=== PATIENT | male | born 1960 | race Caucasian/White ===

== ENCOUNTER → 2023-12-26 08:28 | Outpatient (REF) | payer MEDICARE, SELFPAY | LOC: MRI 3T 08:28 | PROVIDERS: ATTENDING PHYSICIAN Specialist; FAMILY PHYSICIAN Family Medicine | DX: N41.1 Chronic prostatitis (principal) | CPT/HCPCS: 72197; A9575 ==

== ENCOUNTER 2024-01-17 06:05 | Day surgery (SDC) | payer MEDICARE, SELFPAY ==
[2024-01-17] VITALS (9 sets, daily range): BP systolic 114–130; BP diastolic 79–94; BMI 31.7
[2024-01-17 06:36] LABS: Urine Albumin Negative (Neg - Trace); Urine Bilirubin Negative (Negative); Urine Character Clear (Clear); Urine Color Yellow; Urine Glucose Negative (Negative); Urine Ketone Negative (Negative); Urine Leukocyte Negative (Negative); Urine Nitrite Negative (Negative); Urine Occult Blood 3+ (Negative); Urine Urobilinogen Negative (Neg - 1+)
[2024-01-17] MEDS: NORMOSOL-R 1000 IV (06:43)
[2024-01-17 06:44] LABS: INR 1.12; PT 14.4 Sec (11.4-14.6)
[2024-01-17 06:45] LABS: APTT 32.5 Sec (23.4-35.0)
[2024-01-17 06:47] LABS: Urine Bacteria Few (Negative); Urine White Cell 0-2 /HPF (0-5)
[2024-01-17] MEDS: GENTAMICIN 55 MG IV (08:54)
== END 2024-01-17 10:20 | disposition home or self-care (01) ==
LOC: SDS 06:05
PROVIDERS: ATTENDING PHYSICIAN Specialist
DX: C61 Malignant neoplasm of prostate (principal); N41.1 Chronic prostatitis; R97.20 Elevated prostate specific antigen [PSA]
CPT/HCPCS: 55700; 76998; 81003; 81015; 85610; 85730; 87070; 87086; 88305; 88344

== ENCOUNTER → 2024-04-04 07:35 | Outpatient (REF) | payer MEDICARE, SELFPAY | LOC: MRI 3T 07:35 | PROVIDERS: ATTENDING PHYSICIAN Physician Assistant Surgical; FAMILY PHYSICIAN Family Medicine | DX: M25.561 Pain in right knee (principal) | CPT/HCPCS: 73721 ==